=== PATIENT | female | born 1935 | race Hispanic/Latino ===

== ENCOUNTER 2020-09-28 18:15 | Observation (INO) | payer OTHER, MEDICARE ==
[~2020-09-28] VITALS: Ht 152.4 cm; Wt 62.6 kg
[~2020-09-28 18:15] MED LIST: ALBU8.5H8 IH; AMLO-257 PO; GLIP-162 PO; LEVO500T2 PO; LOSA50TA64 PO; LOVA20TA3 PO; PRED20TA3 PO; TIOT18CA3 IH; TRAM50TA4 PO
[2020-09-28 18:17] VITALS: BP 143/75
[2020-09-28] MEDS ORDERED: ASPIRIN 325MG TAB ONE (18:59)
[2020-09-28] MEDS ORDERED: ASPIRIN 325MG EC TAB PO ONE (19:00)
[2020-09-28 19:11] LABS: BASOPHILS % (AUTO) 0.4 % (0.0-5.0); EOSINOPHILS % (AUTO) 0.8 % (0.0-8.0); HEMATOCRIT 35.7 % (36-48); LYMPHOCYTES % (AUTO) 20.5 % (21.0-51.0); MEAN CORPUSCULAR HEMOGLOBIN 29.6 pg (27.0-33.0); MEAN CORPUSCULAR HGB CONC 32.5 g/dL (32.0-36.0); MEAN CORPUSCULAR VOLUME 91.1 fL (79-99); PLATELET COUNT (AUTO) 242 K/uL (130-400); RED BLOOD CELL COUNT(AUTO) 3.92 MIL/uL (4.00-5.50); RED CELL DISTRIBUTION WIDTH 13.8 % (11.0-15.5); WHITE BLOOD COUNT (AUTO) 7.7 K/uL (4.8-10.8)
[2020-09-28 19:16] LABS: CARBON DIOXIDE 29 mmol/L (21-32); CHLORIDE 98 mmol/L (101-111); CREATININE 0.6 mg/dL (0.5-1.5); GLOMERULAR FILTR. RATE CALC 101 mL/min (>60); GLUCOSE,RANDOM 125 mg/dL (70-105); POTASSIUM 3.5 mmol/L (3.5-5.1); SODIUM SERUM 136 mmol/L (136-145); UREA NITROGEN, BLOOD 13 mg/dL (7-18)
[2020-09-28 19:20] LABS: ALANINE AMINOTRANSFERASE 23 U/L (12-78); ALBUMIN 3.9 g/dL (3.5-5.0); ASPARTATE AMINOTRANSFERASE 16 U/L (10-37); BILIRUBIN,TOTAL 0.7 mg/dL (0.2-1.0); TOTAL PROTEIN, SERUM 7.7 g/dL (6.0-8.3)
[2020-09-28 19:25] LABS: B-TYPE NATRIURETIC PEPTIDE 11 pg/mL (0-100); CRP QUANTITATIVE < 2.00 mg/L (0.00-9.0)
[2020-09-28 19:47] VITALS: BP 143/66
[2020-09-28] MEDS: MORPHINE 2 MG SYG IVP PRN (22:20)
[2020-09-28] MEDS ORDERED: PRAV20TA4 PO (22:43)
[2020-09-28] MEDS ORDERED: TELM40TA8 PO (22:43)
[2020-09-28] MEDS ORDERED: CEPH500C2 PO (22:43)
[2020-09-28] MEDS ORDERED: LEVO50CA4 PO (22:43)
[2020-09-28 22:56] VITALS: BP 148/78
[2020-09-29 01:44] LABS: CREATINE KINASE, TOTAL 104 U/L (21-232); MYOGLOBIN 37 ng/mL (10-92); TROPONIN I < 0.04 ng/mL (0.00-0.06)
[2020-09-29 03:40] VITALS: BP 128/73
[2020-09-29] MEDS: MORPHINE 2 MG SYG IVP PRN (06:14)
[2020-09-29] MEDS: LEVOTHYROXINE 50 MCG TABLET PO SCH (06:18)
[2020-09-29 07:30] VITALS: BP 119/63
[2020-09-29] MEDS: CEPHALEXIN 500 MG CAPSULE PO SCH ×2 (09:00→21:23)
[2020-09-29] MEDS: LOSARTAN 25 MG TABLET PO SCH (09:00)
[2020-09-29] MEDS: AMLODIPINE 5 MG TAB PO SCH (09:00)
[2020-09-29] MEDS: CLOPIDOGREL 75MG TAB PO SCH (09:00)
[2020-09-29] MEDS: ENOXAPARIN SODIUM 60 MG/0.6 ML SQ SCH (09:00)
[2020-09-29 10:45] VITALS: BP 132/72
[2020-09-29] MEDS ORDERED: REGADENOSON 0.4 MG/5 ML PF SYG IVP SCH (12:30)
[2020-09-29 15:40] VITALS: BP 139/67
[2020-09-29 19:25] VITALS: BP 125/49
[2020-09-29] MEDS ORDERED: ATORVASTATIN 10 MG TABLET PO SCH (21:00)
[2020-09-29 23:58] VITALS: BP 141/57
[2020-09-30 01:34] LABS: CREATINE KINASE, TOTAL 91 U/L (21-232); MYOGLOBIN 62 ng/mL (10-92); TROPONIN I < 0.04 ng/mL (0.00-0.06)
[2020-09-30 03:45] VITALS: BP 112/70
[2020-09-30 04:58] LABS: HEMATOCRIT 36.9 % (36-48); MEAN CORPUSCULAR HEMOGLOBIN 29.4 pg (27.0-33.0); MEAN CORPUSCULAR VOLUME 91.8 fL (79-99); RED BLOOD CELL COUNT(AUTO) 4.02 MIL/uL (4.00-5.50); RED CELL DISTRIBUTION WIDTH 13.8 % (11.0-15.5); WHITE BLOOD COUNT (AUTO) 4.8 K/uL (4.8-10.8)
[2020-09-30 05:15] LABS: ALBUMIN 3.3 g/dL (3.5-5.0); BILIRUBIN,TOTAL 0.9 mg/dL (0.2-1.0); CREATININE 0.6 mg/dL (0.5-1.5); POTASSIUM 3.8 mmol/L (3.5-5.1); TOTAL PROTEIN, SERUM 6.7 g/dL (6.0-8.3)
[2020-09-30] MEDS: LEVOTHYROXINE 50 MCG TABLET PO SCH (06:25)
[2020-09-30 07:35] VITALS: BP 133/72
[2020-09-30] MEDS: AMLODIPINE 5 MG TAB PO SCH (09:40)
[2020-09-30] MEDS: LOSARTAN 25 MG TABLET PO SCH (09:40)
[2020-09-30] MEDS: CEPHALEXIN 500 MG CAPSULE PO SCH (09:40)
[2020-09-30] MEDS: CLOPIDOGREL 75MG TAB PO SCH (09:40)
[2020-09-30] MEDS: ENOXAPARIN SODIUM 60 MG/0.6 ML SQ SCH (09:41)
== END 2020-09-30 11:00 | disposition home or self-care (01) ==
LOC: EDH 18:15 → EDHIP 19:45 → 3AH 22:44
PROVIDERS: ADMIT Internal Medicine; ATTEND Internal Medicine
DX: I24.9 Acute ischemic heart disease, unspecified (principal); R07.89 Other chest pain; I10 Essential (primary) hypertension; E78.5 Hyperlipidemia, unspecified; J44.9 Chronic obstructive pulmonary disease, unspecified; E03.9 Hypothyroidism, unspecified; E78.00 Pure hypercholesterolemia, unspecified
CPT/HCPCS: 36415 ×3; 71045; 72100; 78452; 80053 ×2; 82550 ×2; 83874 ×2; 83880; 84484 ×3; 85025; 85027; 86140; 93005; 93017; 96372; 96374; 96376; 99285; A9500 ×2; G0378 ×36; J1650; J2785

== ENCOUNTER 2022-07-03 10:01 | Emergency (ER) | payer OTHER, MEDICARE ==
[~2022-07-03] VITALS: Ht 152.4 cm; Wt 59.9 kg
[~2022-07-03 10:01] MED LIST changes: +CEPH500C2 PO; +LEVO50CA4 PO; +PRAV20TA4 PO; +TELM40TA8 PO
[2022-07-03] MEDS ORDERED: LIDO1ADH82 TP (11:50)
[2022-07-03 12:03] VITALS: BP 166/88
== END 2022-07-03 12:21 | disposition home or self-care (01) ==
LOC: EDH 10:01
DX: S63.502A Unspecified sprain of left wrist, initial encounter (principal); J45.909 Unspecified asthma, uncomplicated; E78.00 Pure hypercholesterolemia, unspecified; I10 Essential (primary) hypertension; E03.9 Hypothyroidism, unspecified; Z79.52 Long term (current) use of systemic steroids; Z79.84 Long term (current) use of oral hypoglycemic drugs; Z79.899 Other long term (current) drug therapy; W18.39XA Other fall on same level, initial encounter; Y93.89 Activity, other specified; Y92.89 Other specified places as the place of occurrence of the external cause; Y99.8 Other external cause status
CPT/HCPCS: 73090; 73110